=== PATIENT | male | born 1980 | race African-American/Black ===

== ENCOUNTER → 2020-08-21 | Day surgery (SDC) | payer OTHER | END | disposition home or self-care (01) | LOC: JRADIR 10:48 | PROVIDERS: ATTEND Otolaryngology | PROC: 0G9H3ZX Drainage of Right Thyroid Gland Lobe, Percutaneous Approach, Diagnostic (ICD-10-PCS; principal; 2020-08-21) | DX: E04.1 Nontoxic single thyroid nodule (principal) | CPT/HCPCS: 10005; 76942; 88173; 88305-TC ==

== ENCOUNTER 2023-06-18 19:24 | Emergency (ER) | payer OTHER ==
[2023-06-18 19:44] VITALS: BP 135/84; PULSE 79; RESP 16; TEMP 98.6; BMI 32.8
== END 2023-06-18 22:13 | disposition home or self-care (01) ==
LOC: FER 19:24
DX: S46.012A Strain of muscle(s) and tendon(s) of the rotator cuff of left shoulder, initial encounter (principal); V49.40XA Driver injured in collision with unspecified motor vehicles in traffic accident, initial encounter; Y92.410 Unspecified street and highway as the place of occurrence of the external cause
CPT/HCPCS: 99282-25